=== PATIENT | male | born 1965 | race Asian ===

== ENCOUNTER 2018-02-22 07:20 | Day surgery (SDC) | payer OTHER ==
[2018-02-22] MEDS: DIPHENHYDRAMINE 50 MG CAP PO (06:00)
[2018-02-22] MEDS: FAMOTIDINE 20 MG TAB PO (06:00)
[2018-02-22] MEDS: DIAZEPAM 5 MG TAB PO (06:00)
[~2018-02-22 07:20] MED LIST: SOD CHLORIDE 0.45% 1,000 ML IV
[2018-02-22 08:15] LABS: ADD MAN DIFF? NO
[2018-02-22 08:18] LABS: WHITE BLOOD COUNT 6.7 10^3/ul (4.8-10.8)
[2018-02-22 08:18] LABS: BASOPHILS % 0.6 % (0.0-2.0); EOSINOPHILS # 0.2 10^3/ul (0.0-0.5); EOSINOPHILS % 2.4 % (0.0-7.0); HEMATOCRIT 46.7 % (42.0-52.0); LYMPHOCYTES # 2.6 10^3/ul (0.8-2.9); MEAN CORPUSCULAR HEMOGLOBIN 29.2 pg (29.0-33.0); MEAN CORPUSCULAR HGB CONC 32.1 g/dl (32.0-37.0); MEAN PLATELET VOLUME 8.6 fl (7.4-10.4); MONOCYTE # 0.6 10^3/ul (0.3-0.9); MONOCYTES % 9.1 % (0.0-11.0); NEUTROPHIL # 3.3 10^3/ul (1.6-7.5); NEUTROPHILS % 48.6 % (39.0-77.0); PLATELET COUNT 240 10^3/UL (140-415); RED BLOOD COUNT 5.13 10^6/ul (4.70-6.10); RED CELL DISTRIBUTION WIDTH 13.2 % (11.5-14.5)
[2018-02-22 08:39] LABS: CHOLESTEROL 175 mg/dl (100-200)
[2018-02-22 08:39] LABS: CHOL/HDL RATIO 4.1 RATIO; HDL CHOLESTEROL 42 mg/dl (28-71); INR 0.94; LDL CHOLESTEROL,CALCULATED 76 mg/dl; PARTIAL THROMBOPLASTIN TIME 30.3 Sec (25.0-35.0); PROTIME 12.7 Sec (11.9-14.9); TRIGLYCERIDES 285 mg/dl (0-149)
[2018-02-22] MEDS ORDERED: LIDOCAINE 1% (MDV) 10 ML INJ (09:08)
[2018-02-22] MEDS ORDERED: HEPARIN 1000 UNITS/ML 10 ML INJ (09:08)
[2018-02-22] MEDS ORDERED: NITROGLYCERIN (IC) 100 MCG/ML INJ (09:08)
[2018-02-22] MEDS ORDERED: IODIXANOL LOCM 100 ML BTL (09:08)
[2018-02-22] MEDS ORDERED: VERAPAMIL 5 MG INJ (09:08)
[2018-02-22] MEDS ORDERED: FENTAnyl 50 MCG/ML VIAL (09:16)
[2018-02-22] MEDS ORDERED: MIDAZOLAM 1 MG/ML 2 ML INJ (09:16)
[2018-02-22] MEDS ORDERED: ONDANSETRON 4 MG INJ IV (10:30)
[2018-02-22] MEDS ORDERED: ACETAMINOPHEN 325 MG TAB PO (10:30)
[2018-02-22] MEDS ORDERED: AL HYDROX/MG HYDROX/SIMETH 30 ML CUP PO (10:30)
[2018-02-22] MEDS: SOD CHLORIDE 0.9% 1,000 ML IV (10:56)
== END 2018-02-22 13:42 | disposition home or self-care (01) ==
LOC: CCL 07:20 → SDS 07:20 → CCL 13:42
DX: I25.10 Atherosclerotic heart disease of native coronary artery without angina pectoris (principal); R94.39 Abnormal result of other cardiovascular function study; E78.5 Hyperlipidemia, unspecified; E11.9 Type 2 diabetes mellitus without complications; I10 Essential (primary) hypertension
CPT/HCPCS: 71045; 80061; 82962; 85025; 85610; 85730; 93005; 93458